=== PATIENT | male | born 1950 | race Caucasian/White ===

== ENCOUNTER 2021-07-18 01:44 | Day surgery (SDC) | payer MEDICARE, SELFPAY ==
[2021-07-06 14:16] VITALS: BMI 30.2
[2021-07-18 08:22] VITALS: BP 134/79; PULSE 60; RESP 16; TEMP 36.5; O2SAT 98
[2021-07-18] MEDS: LACTATED RINGERS 1,000 ML 150 ML IV CONT (08:30)
--- NOTE | 2021-07-18 08:50 | WPDANESEPPF ---
Anes - Initial Pre Proc Eval Procedure: Operation Date: 07/18/21 09:00 Proposed Procedures p Screening Colonoscopy - Robb Alatorre MD Date/Time: 07/18/21 08:50 Surgeon: Robb Alatorre MD Pre Op Diagnosis: hx of colon polyps Patient Data Age: 71 Gender: M Height: 1.78 m Weight: 96.7 kg Last Vital Signs Temp 97.7 F 07/18/21 08:22 Pulse 60 07/18/21 08:22 Resp 16 07/18/21 08:22 BP 134/79 07/18/21 08:22 Pulse Ox 98 07/18/21 08:22 Allergies Allergy/AdvReac Type Severity Reaction Status Date / Time No Known Allergies Allergy Verified 07/18/21 08:21 Home Medications Medication Instructions Recorded Confirmed Type aspirin 81 mg tablet,delayed 81 mg PO DAILY 10/15/19 07/18/21 History release atorvastatin 10 mg tablet See Rx Instructions .ROUTE 04/25/21 07/18/21 Rx .COMPLEX #90 tablet Patient hx anesthesia problems: none Family hx anesthesia problems: none Results Review: All pre-operative results and documents have been reviewed as part of the pre-operative evaluation. [facility] Past Medical History Medical History (Updated 07/18/21 @ 08:49 by Josh Bowman MD) Elevated blood pressure reading without diagnosis of hypertension Nonrheumatic aortic (valve) insufficiency Paroxysmal atrial fibrillation Pure hypercholesterolemia, unspecified Family History Family History Mother Cerebrovascular accident, Onset Age: 65 Social History Social History (Updated 05/14/21 @ 14:32 by Jackie Douglas CMA) Smoking status: Never smoker Second hand tobacco smoke exposure: No Alcohol intake: never Substance use: never Substance use type: does not use Living arrangements: alone Gender identity (if verbalized by the patient): Male Spiritual care concerns: No Anes - Eval Final PreProcedure Day of Procedure 07/18/21 08:50 Patient weight: obese Heart: regular rate and rhythm Lungs: clear to auscultation Airway: Mallampati scale class II Neurological: alert and oriented Last oral intake: >/= 8 hours ASA classification: III Emergent: no Anesthetic plan: proceed Anesthesia type and monitoring: general GIVS and standard monitoring Results Review: All pre-operative results and documents have been reviewed as part of the pre-operative evaluation. Informed Consent: The patient's anesthetic plan and its attendant risks and benefits were discussed with the patient/family/POA. Questions were solicited and answers provided to the satisfaction of the patient/family/POA.
--- NOTE | 2021-07-18 09:07 | PM.HPGS ---
History of Present Illness History of Present Illness Consent: Risks, benefits, and alternatives have been discussed and questions answered. Patient agrees to proceed with procedure. Chief complaint: hx of colon polyps Narrative: Jordin Ceballos is a 71 year old male Here for colon cancer screening. He has a history of polyps Review of Systems Review of Systems: All systems reviewed & are unremarkable except as noted in HPI and below PMFSH Past Medical History Medical History Elevated blood pressure reading without diagnosis of hypertension Nonrheumatic aortic (valve) insufficiency Paroxysmal atrial fibrillation Pure hypercholesterolemia, unspecified Family History Family History Mother Cerebrovascular accident, Onset Age: 65 Social History Social History Smoking status: Never smoker Second hand tobacco smoke exposure: No Alcohol intake: never Substance use: never Substance use type: does not use Living arrangements: alone Gender identity (if verbalized by the patient): Male Spiritual care concerns: No Meds Home Medications and Allergies Home Medications Medication Instructions Recorded Confirmed Type aspirin 81 mg tablet,delayed 81 mg PO DAILY 10/15/19 07/18/21 History release atorvastatin 10 mg tablet See Rx Instructions .ROUTE 04/25/21 07/18/21 Rx .COMPLEX #90 tablet Allergies Allergy/AdvReac Type Severity Reaction Status Date / Time No Known Allergies Allergy Verified 07/18/21 08:21 Vital Signs Vital Signs - 24 hr 07/18/21 08:22 Temperature 36.5 C Pulse Rate 60 Respiratory Rate 16 Blood Pressure 134/79 Pulse Oximetry 98 Exam Resp: Auscultation: clear to auscultation bilaterally Cardio: Rate: regular rate Rhythm: regular rhythm GI: GI Palp: Yes Soft to palpation and No Tenderness to palpation present (GI) Assessment and Plan Assessment and plan (1) Colon cancer screening: Code(s): Z12.11 - Encounter for screening for malignant neoplasm of colon Status: Acute Assessment and Plan: Colonoscopy with possible biopsy or polypectomy or cautery or injection of substances.
[2021-07-18 09:23] VITALS: BP 100/54; PULSE 52; RESP 17; O2SAT 96
[2021-07-18 09:33] VITALS: BP 96/48; PULSE 55; RESP 25; O2SAT 97
[2021-07-18 09:43] VITALS: BP 110/75; PULSE 52; RESP 24; O2SAT 98
== END 2021-07-18 09:48 | disposition home or self-care (01) ==
PROVIDERS: PCP Family Medicine; Visit Provider Internal Medicine Gastroenterology
PROC: 0DJD8ZZ Inspection of Lower Intestinal Tract, Via Natural or Artificial Opening Endoscopic (ICD-10-PCS; CPT 45378; principal; 2021-07-18 09:00)
DX: Z12.11 Encounter for screening for malignant neoplasm of colon (principal); Z86.010 Personal history of colon polyps; I48.0 Paroxysmal atrial fibrillation; E78.00 Pure hypercholesterolemia, unspecified; I35.1 Nonrheumatic aortic (valve) insufficiency; Z79.82 Long term (current) use of aspirin; E66.9 Obesity, unspecified; Z68.30 Body mass index [BMI] 30.0-30.9, adult
CPT/HCPCS: G0105; J2704; J7120

== ENCOUNTER 2024-02-26 10:15 | Emergency (ER) | payer MEDICARE, SELFPAY ==
[2024-02-26] VITALS (10 sets, daily range): BP systolic 107–133; BP diastolic 63–86; PULSE 63–73; RESP 13–18; TEMP 36.4; O2SAT 94–100
--- NOTE | ~2024-02-26 | XR_ITS ---
Clinical Indication: Syncope PA and lateral views of the chest: Comparison: None Findings: Bibasilar nipple shadows noted. The lungs are clear, without evidence of focal consolidatio n or pleural effusion. Cardiomediastinal silhouette is within normal limits. Mild wedging deformitie s of T9, T10, and T11 are noted. Impression: Clear lungs. Mild wedging deformities of T9, T10, and T11. Reviewed, dictated and finalized at location M. Impression: Clear lungs. Mild wedging deformities of T9, T10, and T11.
--- NOTE | 2024-02-26 10:37 | ECG_ITS ---
SEE SCANNED COPY FOR CONFIRMED REPORT MTDD
[2024-02-26 11:40] LABS: Basophils Percent Auto 0.3 % (0.2-1.2); Eosinophils Percent Auto 0.3 % (0-4.4); Hematocrit 46.1 % (42.0-52.0); Hemoglobin 15.5 g/dL (14.0-18.0); Immature Granulocyte Absolute 0.03 K/mm3 (0.00-0.031); Immature Granulocyte Percent A 0.3 % (0-0.5); Lymphocytes Absolute Auto 1.23 K/mm3 (0.9-3.2); Lymphocytes Percent Auto 10.7 % (18.3-44.2); Mean Corpuscular HGB Conc 33.6 g/dl (32-36); Mean Corpuscular Hemoglobin 32.1 pg (26-34); Mean Corpuscular Volume 95.4 fl (80-100); Mean Platelet Volume 9.6 fl (7.4-10.4); Monocytes Absolute Auto 0.8 K/mm3 (0.1-0.6); Monocytes Percent Auto 7.1 % (2.6-8.5); Neutrophils Absolute Auto 9.4 K/mm3 (1.3-6.7); Neutrophils Percent Auto 81.3 % (45.5-73.1); Platelet Count Result 199 k/mm3 (150-375); Red Blood Count 4.83 M/mm3 (4.6-6.20); White Blood Count 11.5 K/mm3 (4.5-10.0)
[2024-02-26 11:52] LABS: Alanine Aminotransferase 23 U/L (6-50); Albumin Level 4.3 g/dL (3.5-5.1); Alkaline Phosphatase 58 U/L (38-126); Anion Gap 8 mmol/L (4-12); Aspartate Amino Transferase 31 U/L (17-59); Bilirubin,Total 2.4 mg/dL (0.2-1.3); Blood Urea Nitrogen 19 mg/dL (9-20); Calcium 8.9 mg/dL (8.4-10.2); Carbon Dioxide 25 mmol/L (22-30); Chloride 104 mmol/L (98-107); Estimated CRCL calculation 56 ml/min; Estimated Glomerular Filt Rate 59; Glucose 141 mg/dL (65-110); INR 1.1; Potassium 4.4 mmol/L (3.4-5.0); Prothrombin Time 14.7 Seconds (11.1-14.7); Sodium 137 mmol/L (137-145)
[2024-02-26 12:01] LABS: Troponin I < 0.012 ng/mL (0.000-0.034)
[2024-02-26 12:24] LABS: Influenza A QL RT-PCR Negative (Negative); Influenza B QL RT-PCR Negative (Negative); RSV RNA, RT-PCR Negative (Negative); SARS-CoV-2 RNA PCR Negative (Negative)
--- NOTE | 2024-02-26 14:03 | ED.SYNCOPE ---
HPI - Syncope General Chief Complaint: Syncope Stated Complaint: syncope Time Seen by Provider: 02/26/24 11:13 History of Present Illness HPI narrative: Patient is a 74-year-old male who presents to the ER after having an episode of syncope. He was sitting in a classroom and woke up on the ground. He felt sweaty afterwards and he had vomited at some point. Reports he has had a slight cold over last couple days when he has coughed he has felt lightheaded and dizzy. Denies any chest pain. Denies racing heart. Denies fevers or chills. Had a syncopal episode once 10 years ago. He denies loss of bladder nor any tongue biting. Related Data Home Medications Medication Instructions Recorded Confirmed aspirin 81 mg tablet,delayed 81 mg PO DAILY 10/15/19 10/22/23 release (Adult Low Dose Aspirin) Allergies Allergy/AdvReac Type Severity Reaction Status Date / Time No Known Allergies Allergy Verified 10/22/23 10:11 Review of Systems Review of Systems: All systems reviewed & are unremarkable except as noted in HPI and below Constitutional: Constitutional: Reports no additional constitutional complaints ENT: Reports system reviewed and no additional complaints, except as documented Cardiovascular: Cardiovascular: Reports no additional cardiovascular complaints Gastrointestinal: Gastrointestinal: Reports no additional gastrointestinal complaints Neurologic: Reports syncope, Denies headache(s), Denies focal weakness and Denies numbness PMFSH Past Medical History Medical History Elevated blood pressure reading without diagnosis of hypertension Nonrheumatic aortic (valve) insufficiency Paroxysmal atrial fibrillation Pure hypercholesterolemia, unspecified Family History Family History Mother Cerebrovascular accident, Onset Age: 65 Social History Social History Smoking status: Never smoker Second hand tobacco smoke exposure: No Alcohol intake: never Substance use: never Substance use type: does not use Lack of Transportation: No Lack of Food: Never True Current Housing: I Have Housing Concerned About Future Housing: No Difficulty Paying Gas/Electric Bills: No Difficulty Paying for Meds: No Currently Unemployed: No Education: Master's Degree or Higher Difficulty w/ Childcare or Family Care: No Living arrangements: alone Occupation/Education: retired Gender identity (if verbalized by the patient): Male Spiritual care concerns: No Exam Narrative: GENERAL: Well-appearing, well-nourished, and in no acute distress. HEAD: Normocephalic, atraumatic. EYES: PERRL and EOMI. ENT: Mucous membranes moist. CHEST: Clear to auscultation. No respiratory distress. HEART: Regular rate and rhythm. Normal peripheral pulses. ABDOMEN: Soft, nontender, nondistended. EXTREMITIES: Normal range of motion. No edema. SKIN: Warm, dry, no rash. NEURO: No focal deficits. Alert and oriented x3. PSYCH: Normal mood and affect. Course Course Emergency Course: patient fell to experience a vasovagal syncope since he has been having similar symptoms when coughing. Patient has been hydrated. No orthostatic hypotension. No ectopy noted on monitor while in the ER. Discussed admission for observation versus discharge home and patient is most comfortable with discharge home. Troponin negative x2. Viral panel negative. Vital Signs Vital signs: Vital Signs Temperature 97.6 F 02/26/24 10:16 Pulse Rate 64 02/26/24 10:16 Respiratory Rate 18 02/26/24 10:16 Blood Pressure 107/65 02/26/24 10:16 Pulse Oximetry 99 02/26/24 10:16 Oxygen Delivery Room Air 02/26/24 10:16 Temperature 97.6 F 02/26/24 10:16 Pulse Rate 69 02/26/24 16:25 Respiratory Rate 16 02/26/24 16:25 Blood Pressure 131/70 02/26/24
[2024-02-26] MEDS: SODIUM CHLORIDE 0.9% IV 1,000 ML 999 ML IV CONT (14:28)
[2024-02-26 15:01] LABS: Troponin I < 0.012 ng/mL (0.000-0.034)
== END 2024-02-26 16:25 | disposition home or self-care (01) ==
PROVIDERS: Emergency Provider Emergency Medicine; PCP Family Medicine
DX: R55 Syncope and collapse (principal); J06.9 Acute upper respiratory infection, unspecified; Z20.822 Contact with and (suspected) exposure to COVID-19; I48.0 Paroxysmal atrial fibrillation; I35.1 Nonrheumatic aortic (valve) insufficiency; E78.00 Pure hypercholesterolemia, unspecified; Z79.82 Long term (current) use of aspirin; R94.31 Abnormal electrocardiogram [ECG] [EKG]
CPT/HCPCS: 36415; 71046; 80053; 83605; 84484; 85025; 85610; 85730; 87637; 93005; 96360; 99284; J7030

== ENCOUNTER 2025-10-09 10:25 | Emergency (ER) | payer MEDICARE, SELFPAY ==
[2025-10-09 10:51] VITALS: BP 92/55; PULSE 69; RESP 16; TEMP 35.7; O2SAT 100
--- NOTE | 2025-10-09 11:09 | ED.NEUROSD ---
HPI - Neuro Symptoms/Deficit General Chief Complaint: Unspecified Stated Complaint: face droop Patient presents to the [facility] with complaints of numbness and no movement to the left side of face that began about 3 days ago. Patient noted using some lubricating eyedrops in the left eye last night and this does feel better. 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 Denies any worsening symptoms, dizziness, vision changes, headaches, weakness in arms or legs, nausea, vomiting, diarrhea. Related Data Home Medications ?Medication ?Instructions ?Recorded ?Confirmed ?Last Taken ?Type aspirin 81 mg tablet,delayed 81 mg PO DAILY 10/15/19 05/11/25 07/17/21 07:00 History release (Adult Low Dose Aspirin) Allergies Allergy/AdvReac Type Severity Reaction Status Date / Time No Known Allergies Allergy Verified 10/09/25 10:50 Review of Systems Constitutional: Constitutional: Reports as per HPI, Denies chills, Denies fatigue, Denies fever(s) and Denies weakness Eyes: Eyes: Reports as per HPI, Denies change in vision and Denies photophobia Comments: unable to close left eye ENT: Reports as per HPI, Denies vertigo, Denies dizziness, Denies nasal congestion and Denies sore throat Comments: left-sided numbness and facial droop Cardiovascular: Cardiovascular: Reports no additional cardiovascular complaints Respiratory: Respiratory: Reports no additional respiratory complaints Gastrointestinal: Gastrointestinal: Reports no additional gastrointestinal complaints Genitourinary: Genitourinary: Reports no additional male genitourinary complaints Musculoskeletal: Musculoskeletal: Reports as per HPI, Denies back pain, Denies myalgias, Denies arthralgias, Denies joint swelling and Denies muscle cramps Integumentary/Breasts: Skin/Breast: Reports as per HPI, Denies pruritus, Denies erythema, Denies rash and Denies skin ulcer Neurologic: Reports as per HPI, Denies vertigo, Denies dizziness, Denies syncope, Denies headache(s), Reports numbness and Denies weakness Comments: left-sided facial drooping and paralysis Psychiatric: Psychiatric: Reports no additional psychiatric complaints Endocrine: Endocrine: Reports no additional endocrine complaints Hematologic/Lymphatic: Hematologic/Lymphatic: Reports no additional hematologic/lymphatic complaints Allergic/Immunologic: Allergic/Immunologic: Reports no additional allergic/immunologic complaints PMFSH Past Medical History Medical History Elevated blood pressure reading without diagnosis of hypertension Nonrheumatic aortic (valve) insufficiency Paroxysmal atrial fibrillation Pure hypercholesterolemia, unspecified Family History Family History Mother Cerebrovascular accident, Onset Age: 65 Social History Social History Smoking status: Never smoker Second hand tobacco smoke exposure: No Alcohol intake: never Substance use: never Substance use type: does not use Lack of Transportation: No Lack of Food: Never True Current Housing: I Have Housing Concerned About Future Housing: No Difficulty Paying Gas/Electric Bills: No Difficulty Paying for Meds: No Currently Unemployed: No Education: Master's Degree or Higher Difficulty w/ Childcare or Family Care: No Living arrangements: alone Occupation/Education: retired Gender identity (if verbalized by the patient): Male Spiritual care concerns: No Exam Const: General: healthy appearing and no acute distress Nutritional Appearance: well nourished Orientation/consciousness: patient oriented x3 Limitations: no limitations HENMT: Head: normal to inspection, no contusions, no hematomas and no lacerations Face and sinus: abnormal facial exam and sinuses nontender Mouth: Yes Normal oral and palatal mucosa present and Yes moist mucous membranes Eyes: Conjunctivae: conjunctivae normal Pupils: Equal, round and reactive pupils present EOM: EOMs intact bilaterally Direct Ophthalmoscopy: no photophobia Resp: Effort & Inspection: normal respiratory effort Auscultation: clear to auscultation bilaterally Cardio: Rate: regular rate Rhythm: regular rhythm Skin: General skin exam: normal color Rashes: no rashes Wounds: no wounds Neuro: General: patient oriented x3, moves all extremities and no meningeal signs Cranial nerves: Yes Nystagmus not present Speech: normal speech Gait exam (Neuro): Normal gait present Other: upper extremity strength 5/5 bilaterally. lower extremity strength 5/5 bilaterally. Tongue midline. left-sided facial droop with eyelid involvement. Unable to close left eye completely. Psych: Mental Status: mental status grossly normal Affect: normal affect Attitude: cooperative Course Course Level of Care: Express Care Visit Vital Signs Vital signs: Vital Signs Temperature 96.3 F L 10/09/25 10:51 Pulse Rate 69 10/09/25 10:51 Respiratory Rate 16 10/09/25 10:51 Blood Pressure 92/55 L 10/09/25 10:51 Pulse Oximetry 100 10/09/25 10:51 Oxygen Delivery Room Air 10/09/25 10:51 Temperature 96.3 F L 10/09/25 10:51 Pulse Rate 69 10/09/25 10:51 Respiratory Rate 16 10/09/25 10:51 Blood Pressure 92/55 L 10/09/25 10:51 Pulse Oximetry 100 10/09/25 10:51 Oxygen Delivery Room Air 10/09/25 10:51 MDM MDM Narrative Medical decision making narrative: Neuro exam from neck down negative, exam consistent with Avilez's palsy. The patient was evaluated by myself in the [facility] care. History is obtained from patient who is an independent historian and physical exam was performed. Available medical records were reviewed at this time. Exam findings show no acute concerns or changes; patient is non-toxic appearing and is in no distress. Patient is appropriate for outpatient treatment and follow-up. I have evaluated and discussed social determinants of health with the patient that could potentially impact subsequent diagnosis and treatment plans. Differential diagnosis and treatment plan were discussed with the patient. Patient agrees with discussion and after shared medical decision making agrees with plan of care. All questions were answered to the patient's satisfaction. Differential Diagnosis Differential Diagnosis: Bulge causing, stroke, brain bleed, migraine Medical Records I have reviewed the following patient records and this information was taken into consideration when formulating the assessment and plan.: previous labs, previous ER visits, previous hospitalizations and previous clinic visits Discharge Plan Discharge Clinical Impression: Facial paralysis/[place] palsy Patient Disposition: Home Condition: Stable Instructions: Antibiotic Form, Avilez Palsy (ED) Additional Instructions: take medication as directed to help with inflammation a potential Virus ensure to attempt to move your facial muscles or use a small vibrator to awaken these nerves ever notice any significant headache, worsening symptoms, weakness in arms or legs, or significant dizziness go to the emergency room for further evaluation Patient Language: Romansh Prescriptions: New acyclovir 800 mg tablet 800 mg PO TID Qty: 21 0RF prednisone 20 mg tablet 60 mg PO DAILY Qty: 15 0RF No Action aspirin [Adult Low Dose Aspirin] 81 mg tablet,delayed release (DR/EC) 81 mg PO DAILY atorvastatin 10 mg tablet See Rx Instructions .ROUTE .COMPLEX Qty: 90 1RF Dose Instruction: TAKE 1 TABLET BY MOUTH DAILY Rx Instructions: TAKE 1 TABLET BY MOUTH DAILY lisinopril-hydrochlorothiazide 20-12.5 mg tablet 1 tablet PO DAILY Qty: 90 1RF metoprolol succinate 25 mg tablet extended release 24 hr 25 mg PO DAILY Qty: 90 3RF Follow-up/Referrals: Jordin Bethea MD [Primary Care Provider, Family Practice] Time of Disposition: 11:12
== END 2025-10-09 11:15 | disposition home or self-care (01) ==
PROVIDERS: Emergency Provider Nurse Practitioner Family; PCP Family Medicine
DX: G51.0 Bell's palsy (principal); I48.0 Paroxysmal atrial fibrillation; E78.00 Pure hypercholesterolemia, unspecified; I35.1 Nonrheumatic aortic (valve) insufficiency; Z79.82 Long term (current) use of aspirin
CPT/HCPCS: 99213; G0463